=== PATIENT | female | born 1955 | race Caucasian/White ===

== ENCOUNTER → 2017-07-21 | Outpatient (CLI) | payer OTHER | END | disposition home or self-care (01) | LOC: LAB 13:54 | DX: E11.9 Type 2 diabetes mellitus without complications (principal) | CPT/HCPCS: 82043 ==

== ENCOUNTER → 2017-08-24 | Outpatient (CLI) | payer OTHER | END | disposition home or self-care (01) | LOC: LAB 13:21 | PROVIDERS: Nurse Practitioner Family | DX: Z01.411 Encounter for gynecological examination (general) (routine) with abnormal findings (principal) | CPT/HCPCS: G0145 ==

== ENCOUNTER → 2019-09-09 | Outpatient (CLI) | payer MEDICARE, OTHER | END | disposition home or self-care (01) | LOC: PLD 08:09 → LAB SHORT 08:09 | DX: D48.5 Neoplasm of uncertain behavior of skin (principal); L82.1 Other seborrheic keratosis | CPT/HCPCS: 88305 ==

== ENCOUNTER 2023-08-16 17:23 | Inpatient (IN) | payer MEDICARE, OTHER ==
[~2023-08-16] VITALS: Ht 190.5 cm; Wt 97.1 kg
[2023-08-16 18:08] LABS: BASOPHILS ABSOLUTE AUTO 0.05 K/mm3 (0.00-0.23); BASOPHILS PERCENT AUTO 0 % (0-2); EOSINOPHILS ABSOLUTE AUTO 0.07 K/mm3 (0.00-0.68); EOSINOPHILS PERCENT AUTO 1 % (0-6); Hematocrit 40.8 % (33.0-51.0); Hemoglobin 13.6 g/dL (11.5-16.0); IMMATURE GRAN ABSOLUTE AUTO 0.06 K/mm3 (0.00-0.10); IMMATURE GRAN PERCENT AUTO 1 % (0-1); LYMPHOCYTES ABSOLUTE AUTO 1.39 K/mm3 (0.84-5.20); LYMPHOCYTES PERCENT AUTO 11 % (21-46); MONOCYTES ABSOLUTE AUTO 0.58 K/mm3 (0.16-1.47); MONOCYTES PERCENT AUTO 5 % (4-13); Mean Corpuscular HGB 29.4 pg (26.0-34.0); Mean Corpuscular HGB Conc 33.3 g/dL (31.5-36.5); Mean Corpuscular Volume 88 fL (80-100); Mean Platelet Volume 10.2 fL (9.1-12.4); NEUTROPHILS ABSOLUTE AUTO 10.71 K/mm3 (1.96-9.15); NEUTROPHILS PERCENT AUTO 83 % (41-73); Platelet Count 289 K/mm3 (150-400); RDW Coefficient Variation 12.9 % (11.7-14.2); RDW Standard Deviation 41.7 fL (35.1-46.3); Red Blood Cell Count 4.63 M/mm3 (3.80-5.20); White Blood Cell Count 12.86 K/mm3 (4.00-11.30)
[2023-08-16 18:31] LABS: Bilirubin, Total 0.4 mg/dL (0.1-1.0); Bun/Creatinine Ratio 17.3 (12.0-20.0); Calcium, Blood 10.2 mg/dL (8.5-10.1); Creatinine, Blood 1.5 mg/dL (0.40-1.00); Globulin, Blood 3.9 g/dL (2.2-4.0); Potassium, Blood 4.2 mmol/L (3.5-5.5); Total Protein, Blood 7.9 g/dL (6.4-8.2)
[2023-08-16 18:45] LABS: Source, Urine Clean Catch
[2023-08-16 18:48] LABS: Appearance, Urine Clear (Clear); Bilirubin, Urine Neg (Neg); Blood, Urine 2+ (Neg); Color, Urine Yellow (P-Yellow); Glucose Qualitative, Urine 1+ (Neg); Ketones, Urine 2+ (Neg); Leukocyte Esterase, Urine 1+ (Neg); Nitrite, Urine Neg (Neg); Protein, Urine 3+ (Neg); Specific Gravity, Urine 1.025 (1.003-1.022); Urobilinogen, Urine NORM (Normal)
[2023-08-16] MEDS ORDERED: LEVSOD88 PO (18:51)
[2023-08-16] MEDS ORDERED: PANT40 PO (18:52)
[2023-08-16] MEDS ORDERED: INSULANI SC (18:53)
[2023-08-16] MEDS ORDERED: METF500 PO (18:54)
[2023-08-16] MEDS ORDERED: LIOT5 PO (18:54)
[2023-08-16] MEDS ORDERED: MONT10T PO (18:55)
[2023-08-16] MEDS ORDERED: Crestor40 MG PO (18:55)
[2023-08-16] MEDS ORDERED: Tessalon200 MG PO (18:56)
[2023-08-16] MEDS ORDERED: LEVALBUTER1.25 MG/01 INH (18:58)
[2023-08-16] MEDS ORDERED: LEVALBUTEROL TA15 G1 INH (18:58)
[2023-08-16 18:59] LABS: Bacteria Many /hpf; Calcium Oxalate Crystals Rare /hpf; Squamous Epithelial Cells Many /hpf (Few)
[2023-08-16] MEDS ORDERED: [UNRECOGNIZED DRUG - CODE] PO (18:59)
[2023-08-16] MEDS ORDERED: ATOMOXETINE HCL PO (18:59)
[2023-08-16 19:00] LABS: Renal Epithelial Rare /hpf (0-Rare)
[2023-08-16] MEDS ORDERED: HYDPAM50 PO (19:00)
[2023-08-16] MEDS ORDERED: OXYB5 PO (19:00)
[2023-08-16] MEDS ORDERED: REPATHA SU140 MG/1 M SQ (22:58)
[2023-08-16] MEDS ORDERED: PRED5 PO (23:00)
[2023-08-16] MEDS ORDERED: ZANAFLEX413 PO (23:01)
[2023-08-16 23:55] VITALS: BP 139/90
--- NOTE | 2023-08-17 05:11 | NUR ---
Shift Summary/Admit Note Ms. Leon was admitted from the ER last night due to complaints of right side abdominal pain with a diagnosis of kidney stone and right pyeloneprhitis. She is alert and oriented x 4. She is independently ambulatory to the bathroom with a steady gate. No skin issues. Lung sounds clear. Respirations regular and unlabored. She has an IV in her right hand with Normal Saline infusing at 100 ml/hr. She got IV toradol after arriving to the floor. He pain was controlled with PRN medication. She was given a flu shot in her right arm. Bed in low postion. Call light in reach.
[2023-08-17 05:22] LABS: BASOPHILS ABSOLUTE AUTO 0.03 K/mm3 (0.00-0.23); BASOPHILS PERCENT AUTO 0 % (0-2); EOSINOPHILS ABSOLUTE AUTO 0.19 K/mm3 (0.00-0.68); EOSINOPHILS PERCENT AUTO 2 % (0-6); Hematocrit 34.6 % (33.0-51.0); Hemoglobin 11.5 g/dL (11.5-16.0); IMMATURE GRAN ABSOLUTE AUTO 0.03 K/mm3 (0.00-0.10); IMMATURE GRAN PERCENT AUTO 0 % (0-1); LYMPHOCYTES ABSOLUTE AUTO 2.09 K/mm3 (0.84-5.20); LYMPHOCYTES PERCENT AUTO 25 % (21-46); MONOCYTES ABSOLUTE AUTO 0.59 K/mm3 (0.16-1.47); MONOCYTES PERCENT AUTO 7 % (4-13); Mean Corpuscular HGB 29.6 pg (26.0-34.0); Mean Corpuscular HGB Conc 33.2 g/dL (31.5-36.5); Mean Corpuscular Volume 89 fL (80-100); Mean Platelet Volume 10.7 fL (9.1-12.4); NEUTROPHILS ABSOLUTE AUTO 5.29 K/mm3 (1.96-9.15); NEUTROPHILS PERCENT AUTO 64 % (41-73); Platelet Count 238 K/mm3 (150-400); RDW Coefficient Variation 13.1 % (11.7-14.2); RDW Standard Deviation 42.6 fL (35.1-46.3); Red Blood Cell Count 3.89 M/mm3 (3.80-5.20); White Blood Cell Count 8.22 K/mm3 (4.00-11.30)
[2023-08-17 06:00] LABS: Albumin/Globulin Ratio 0.9 (0.8-1.8); Bilirubin, Total 0.3 mg/dL (0.1-1.0); Bun/Creatinine Ratio 25.2 (12.0-20.0); Calcium, Blood 8.3 mg/dL (8.5-10.1); Creatinine, Blood 1.19 mg/dL (0.40-1.00); Globulin, Blood 3.2 g/dL (2.2-4.0); Potassium, Blood 3.9 mmol/L (3.5-5.5); Total Protein, Blood 6.2 g/dL (6.4-8.2)
[2023-08-17 08:33] VITALS: BP 121/71
[2023-08-17 16:35] VITALS: BP 120/80
--- NOTE | 2023-08-17 17:11 | NUR ---
SHIFT SUMMARY: PT IS A 68 YEAR OLD FEMALE HERE FOR A RIGHT SIDED URETEROVESICAL JUNCTION (UVJ) STONE. THE STONE HAS POTENTIALLY PASSED DUE TO THE PATIENT NO LONGER COMPLAINING OF PAIN. ANTINAUSEA MEDICATION ADMINISTERED ONCE TODAY. SHE IS RECEIVING NORMAL SALINE AT 75ML/HR CONTINOUSLY. SHE IS IN BED, CALL LIGHT WTIHIN REACH, NO SIGNS OR SYMPTOMS DISTRESS. PLAN OF CARE ONGOING.
[2023-08-17 19:38] VITALS: BP 123/69
--- NOTE | 2023-08-18 03:29 | NUR ---
Shift Summary Patient is alert and oriented x 4. Respirations regular and unlabored. Lung sounds clear. She is on room air. Bowel sounds active. She has an IV in her right forearm with Normal Saline infusing at 75 ml/hr. She continues to have frequency with urination but denies pain. She recieved IV Rocephin 1gm on this shift. Patient is independently ambulatory to the bathroom. Bed is in low postion and call light is in reach.
[2023-08-18 04:08] VITALS: BP 133/67
[2023-08-18 07:33] VITALS: BP 136/84
[2023-08-18] MEDS ORDERED: FIASP 100100 UNIT/3 SC (12:22)
--- NOTE | 2023-08-18 15:23 | NUR ---
DISCHARGE NOTE: DISCHARGE DISCUSSED WITH PATIENT. IV REMOVED. BELONGINGS WERE COLLECTED AND PATIENT GOT DRESSED AND CALLED HER RIDE. HER FRIEND DURGA ARRIVED AT THE [facility] AND THE PATIENT WAS WHEELED DOWN VIA WHEELCHAIR BY RN. NO SIGNS OR SYMPTOMS OF DISTRESS DURING DISCHARGE.
== END 2023-08-18 15:15 | disposition home or self-care (01) | DRG 694 ==
LOC: ER 17:23 → MEDS 17:24 → ER 17:24 → MEDS 17:24
PROVIDERS: Student in an Organized Health Care Education/Training Program; ADMIT Internal Medicine
DX: N13.2 Hydronephrosis with renal and ureteral calculous obstruction (principal); F41.9 Anxiety disorder, unspecified; F32.A Depression, unspecified; K44.9 Diaphragmatic hernia without obstruction or gangrene; N17.9 Acute kidney failure, unspecified; E11.22 Type 2 diabetes mellitus with diabetic chronic kidney disease; N18.9 Chronic kidney disease, unspecified; K57.30 Diverticulosis of large intestine without perforation or abscess without bleeding; K76.0 Fatty (change of) liver, not elsewhere classified; Z79.4 Long term (current) use of insulin; Z79.899 Other long term (current) drug therapy; Z87.19 Personal history of other diseases of the digestive system; Z79.890 Hormone replacement therapy; Z88.5 Allergy status to narcotic agent; Z88.1 Allergy status to other antibiotic agents; Z88.8 Allergy status to other drugs, medicaments and biological substances; Z90.89 Acquired absence of other organs; Z90.49 Acquired absence of other specified parts of digestive tract; Z90.710 Acquired absence of both cervix and uterus; Z90.722 Acquired absence of ovaries, bilateral
CPT/HCPCS: 36415; 74177; 80053; 81001; 82947; 85025; 87086; 94640; 94664; 94760; 96361; 96365; 96372; 96375; 96376; 99285-25; A9270; G0008; G0378; J0696; J1170; J1650; J1815; J1885; J1940; J2405; J7030; Q2036; Q9967

== ENCOUNTER 2024-02-04 03:57 | Emergency (ER) | payer MEDICARE, OTHER ==
[~2024-02-04] VITALS: Ht 160 cm; Wt 97.5 kg
[~2024-02-04 03:57] MED LIST: ATOMOXETINE HCL PO; Crestor40 MG PO; FIASP 100100 UNIT/3 SC; HYDPAM50 PO; INSULANI SC; LEVALBUTER1.25 MG/01 INH; LEVALBUTEROL TA15 G1 INH; LEVSOD88 PO; LIOT5 PO; METF500 PO; MONT10T PO; OXYB5 PO; PANT40 PO; PRED5 PO; REPATHA SU140 MG/1 M SQ; Tessalon200 MG PO; ZANAFLEX413 PO; [UNRECOGNIZED DRUG - CODE] PO
[2024-02-04 04:32] LABS: BASOPHILS ABSOLUTE AUTO 0.06 K/mm3 (0.00-0.23); BASOPHILS PERCENT AUTO 1 % (0-2); EOSINOPHILS ABSOLUTE AUTO 0.11 K/mm3 (0.00-0.68); EOSINOPHILS PERCENT AUTO 1 % (0-6); Hemoglobin 12.6 g/dL (11.5-16.0); IMMATURE GRAN ABSOLUTE AUTO 0.05 K/mm3 (0.00-0.10); IMMATURE GRAN PERCENT AUTO 1 % (0-1); LYMPHOCYTES ABSOLUTE AUTO 1.02 K/mm3 (0.84-5.20); LYMPHOCYTES PERCENT AUTO 13 % (21-46); MONOCYTES ABSOLUTE AUTO 0.41 K/mm3 (0.16-1.47); MONOCYTES PERCENT AUTO 5 % (4-13); Mean Corpuscular HGB 30.1 pg (26.0-34.0); Mean Corpuscular HGB Conc 34.1 g/dL (31.5-36.5); Mean Corpuscular Volume 88 fL (80-100); Mean Platelet Volume 10.8 fL (9.1-12.4); NEUTROPHILS PERCENT AUTO 80 % (41-73); Platelet Count 222 K/mm3 (150-400); RDW Coefficient Variation 13.4 % (11.7-14.2); RDW Standard Deviation 43.2 fL (35.1-46.3); Red Blood Cell Count 4.19 M/mm3 (3.80-5.20); White Blood Cell Count 8.05 K/mm3 (4.00-11.30)
[2024-02-04 04:45] LABS: Albumin, Blood 3.6 g/dL (3.4-5.0); Bilirubin, Total 0.4 mg/dL (0.1-1.0); Bun/Creatinine Ratio 18.1 (12.0-20.0); Calcium, Blood 8.7 mg/dL (8.5-10.1); Creatinine, Blood 0.83 mg/dL (0.40-1.00); Globulin, Blood 3.6 g/dL (2.2-4.0); Potassium, Blood 4.4 mmol/L (3.5-5.5); Total Protein, Blood 7.2 g/dL (6.4-8.2)
[2024-02-04] MEDS ORDERED: Pantoprazole Sodium 40 MG Injection IV ONE (05:30)
[2024-02-04] MEDS ORDERED: NS 1,000 ML IV SCH (05:30)
[2024-02-04] MEDS ORDERED: ONDA4ODT MM (05:49)
[2024-02-04 07:08] VITALS: BP 157/74
== END 2024-02-04 07:09 | disposition home or self-care (01) ==
LOC: ER 03:57
PROVIDERS: Emergency Medicine
DX: R11.2 Nausea with vomiting, unspecified (principal); Z88.1 Allergy status to other antibiotic agents; Z88.5 Allergy status to narcotic agent; Z79.899 Other long term (current) drug therapy; Z79.4 Long term (current) use of insulin; Z79.84 Long term (current) use of oral hypoglycemic drugs; E11.9 Type 2 diabetes mellitus without complications
CPT/HCPCS: 80053; 85025; 96361; 96374; 99284-25; C9113; J7030

== ENCOUNTER 2024-05-07 10:24 | Emergency (ER) | payer MEDICARE, OTHER ==
[~2024-05-07] VITALS: Ht 160 cm; Wt 99.8 kg
[~2024-05-07 10:24] MED LIST changes: +ONDA4ODT MM
[2024-05-07] MEDS ORDERED: Ipratropium/Albuterol SulF 2.5-0.5MG/3 ML Amp INH PRN (10:50)
[2024-05-07] MEDS ORDERED: levalbuterol HCL 1.25 MG/3 ML VIAL INH ONE ×2 (11:10→14:50)
[2024-05-07 12:15] VITALS: BP 157/78
[2024-05-07] MEDS ORDERED: Ipratropium Bromide INH 0.02% 0.5 mg/2.5ML Vial INH SCH (13:20)
[2024-05-07] MEDS ORDERED: MethylPREDNISolone Sod Succ 125 MG Vial IV ONE (13:20)
[2024-05-07] MEDS ORDERED: Albuterol 2.5 MG/3 ML VIAL INH SCH (13:20)
[2024-05-07] MEDS ORDERED: LORazepam 2 MG/ML 1ML Injection IV ONE (13:25)
[2024-05-07 13:52] LABS: International Normalized Ratio 0.91; Prothrombin Time Results 9.8 Sec (9.7-11.5)
[2024-05-07] MEDS ORDERED: levalbuterol HCL 1.25 MG/3 ML VIAL INH SCH (15:20)
[2024-05-07] MEDS ORDERED: PRED20 PO (16:36)
== END 2024-05-07 17:01 | disposition home or self-care (01) ==
LOC: ER 10:24
PROVIDERS: Student in an Organized Health Care Education/Training Program
DX: J45.901 Unspecified asthma with (acute) exacerbation (principal); T48.3X5A Adverse effect of antitussives, initial encounter; E11.9 Type 2 diabetes mellitus without complications; E03.9 Hypothyroidism, unspecified; E78.5 Hyperlipidemia, unspecified; Z79.4 Long term (current) use of insulin; Z79.84 Long term (current) use of oral hypoglycemic drugs; Z79.899 Other long term (current) drug therapy; Z88.1 Allergy status to other antibiotic agents; Z88.5 Allergy status to narcotic agent; Z88.8 Allergy status to other drugs, medicaments and biological substances
CPT/HCPCS: 71046; 71250; 85610; 94640; 94644; 94664; 96374; 96375; 99285-25; J2060; J2919; J7614

== ENCOUNTER 2024-08-03 11:59 | Emergency (ER) | payer MEDICARE, OTHER ==
[~2024-08-03] VITALS: Ht 160 cm; Wt 95.2 kg
[2024-08-03 12:01] VITALS: BP 151/113
== END 2024-08-03 15:05 | disposition left against medical advice (07) ==
LOC: ER 11:59
DX: K62.89 Other specified diseases of anus and rectum (principal); L08.9 Local infection of the skin and subcutaneous tissue, unspecified; Z53.21 Procedure and treatment not carried out due to patient leaving prior to being seen by health care provider
CPT/HCPCS: 87070; 87077; 87186; 87205; 99281

== ENCOUNTER → 2024-08-03 | Outpatient (CLI) | payer MEDICARE, OTHER ==
[~2024-08-03] MED LIST changes: +PRED20 PO
== END | disposition home or self-care (01) ==
LOC: LAB SHORT 16:00 → LAB 16:00
DX: L08.9 Local infection of the skin and subcutaneous tissue, unspecified (principal)
CPT/HCPCS: 87070; 87077; 87186; 87205